=== PATIENT | male | born 1940 | race Caucasian/White ===

== ENCOUNTER → 2019-07-16 10:33 | Outpatient (CLI) | payer MEDICARE, OTHER, SELFPAY ==
--- NOTE | 2019-07-24 10:26 | PM.PFT.1 ---
Pulmonary Function Test Referral & Results Date Patient Seen: 07/16/19 Requesting provider: Coy Harvey Results: The spirometry demonstrates an FVC of 3.23 L which is 76% of predicted. The FEV1 was measured at 0.91 L which is 29% of predicted. The FEV1/FVC ratio was 28 which is 39% of predicted. No bronchodilator was administered Lung volumes show an SVC of 3.12 L which is 68% of predicted. The diffusing capacity was measured at 13.97 which is 41% of predicted. No hemoglobin value was provided, so no correction for potential anemia could be made, if appropriate. The maximum voluntary ventilation was reduced Interpretation: This study demonstrates severe obstructive lung disease based on a reduction of both FEV1 (which is less than 1 L) as well as FEV1/FVC ratio. There is also moderate restrictive lung disease present based on reduction SVC There is also severe reduction in diffusing capacity suggesting significant disease at the capillary alveolar level Clinical correlation suggested
== END ==
PROVIDERS: Family Provider Family Medicine Geriatric Medicine; Visit Provider Internal Medicine Pulmonary Disease
DX: J44.9 Chronic obstructive pulmonary disease, unspecified (principal); R91.8 Other nonspecific abnormal finding of lung field
CPT/HCPCS: 94010; 94729